=== PATIENT | male | born 1955 | race African-American/Black ===

== ENCOUNTER 2017-06-08 17:12 | Emergency (ER) | payer OTHER ==
[~2017-06-08] VITALS: Wt 80.2 kg
[2017-06-08 18:15] LABS: HEMATOCRIT 33.3 % (42.0-52.0); HEMOGLOBIN 10.8 gm/dL (14.0-18.0); MCH 26.5 pg (26.0-34.0); MCHC 32.4 g/dL (28.0-37.0); MCV 81.7 fL (80.0-100.0); PLATELET COUNT 327 thou/uL (150-400); RBC 4.08 mil/uL (4.50-6.00); RDW 15.4 % (10.5-14.5); WBC 10.7 thou/uL (4.0-11.0)
[2017-06-08 18:24] LABS: CALCIUM 10.8 mg/dL (8.5-10.1); CREATININE 0.9 mg/dL (0.7-1.3); POTASSIUM 3.4 mmol/L (3.5-5.1)
[2017-06-08 18:36] LABS: ABSOLUTE NEUTROPHILS 7.1 thou/uL (1.4-8.2)
[2017-06-08 21:55] VITALS: BP 154/55
[2017-06-08] MEDS ORDERED: CARVEDILOL3.125 MG PER TUBE (22:08)
[2017-06-08] MEDS ORDERED: MAXIPIME 1 GM/D51 G1 IV (22:09)
[2017-06-08] MEDS ORDERED: ACIDOPHILUS1 EAC3 PER TUBE (22:10)
[2017-06-08] MEDS ORDERED: CYCLOBENZAPRINE5 MG PO (22:10)
[2017-06-08] MEDS ORDERED: TRANSDERM-SCOP1 EACH TOP (22:10)
[2017-06-08] MEDS ORDERED: DURAGESIC25 MCG/HR TRANSDERM (22:11)
[2017-06-08] MEDS ORDERED: FLUOROMETHOLONE5 ML OPHTHALMIC (22:12)
[2017-06-08] MEDS ORDERED: GABAPENTIN 100100 MG PER TUBE (22:12)
[2017-06-08] MEDS ORDERED: GLUCAGEN1 M2 (22:12)
[2017-06-08] MEDS ORDERED: HUMALOG100 UNIT/1 SUBQ (22:13)
[2017-06-08] MEDS ORDERED: GLUTOSE GEL 1515 G1 PO (22:13)
[2017-06-08] MEDS ORDERED: HEPARIN 5 U1 UNIT/ML SUBQ (22:14)
[2017-06-08] MEDS ORDERED: HYDRALAZIN20 MG/1 ML IV (22:14)
[2017-06-08] MEDS ORDERED: LANTUS100 UNIT/M SUBQ (22:15)
[2017-06-08] MEDS ORDERED: VIMPAT100 MG PER TUBE (22:15)
[2017-06-08] MEDS ORDERED: KEPPRA750 MG PER TUBE (22:16)
[2017-06-08] MEDS ORDERED: MELATONIN3 MG PER TUBE (22:16)
[2017-06-08] MEDS ORDERED: OXYCODONE HCL 55 MG PO (22:17)
[2017-06-08] MEDS ORDERED: MESALAMINE PO (22:17)
[2017-06-08] MEDS ORDERED: PRO-STAT LIQUID30 M1 PO (22:18)
[2017-06-08] MEDS ORDERED: VITAMIN D3400 UNIT PER TUBE (22:20)
[2017-06-08] MEDS ORDERED: SEROQUEL 25 MG25 M1 PER TUBE (22:20)
[2017-06-08] MEDS ORDERED: VALIUM5 MG PER TUBE (22:21)
[2017-06-08] MEDS ORDERED: PEPCID20 MG PO (22:21)
[2017-06-08] MEDS ORDERED: BENADRYL25 MG PER TUBE (22:21)
== END 2017-06-08 22:05 ==
LOC: ER 17:12
PROVIDERS: Emergency Medicine
DX: J95.09 Other tracheostomy complication (principal); J96.90 Respiratory failure, unspecified, unspecified whether with hypoxia or hypercapnia; J18.9 Pneumonia, unspecified organism; Z99.11 Dependence on respirator [ventilator] status; G93.1 Anoxic brain damage, not elsewhere classified; Y83.8 Other surgical procedures as the cause of abnormal reaction of the patient, or of later complication, without mention of misadventure at the time of the procedure; Y92.89 Other specified places as the place of occurrence of the external cause

== ENCOUNTER 2017-06-08 22:42 | Inpatient (IN) | payer OTHER ==
[~2017-06-08] VITALS: Wt 74.6 kg
--- NOTE | ~2017-06-08 | EEG ---
[facility] [place] [address] ELECTROENCEPHALOGRAM Name: MEJIAALEXANDRIAJEANNINE Room #: 245-P [facility] IN M.R.#: [id number] Admission: 06/11/17 Attend Phys: Froy Melendez MD Discharge: 06/18/17 Date of : 53 Report #: [id number] THIS REPORT FOR: //name// CC: MALI Zapata [facility] DATE OF SERVICE: 06/16/2017 This patient is being evaluated for altered mental status. EEG was done by placing the electrodes by standard 10-20 system of electrode placement. Both referential and sequential montages were used for recording. Background activity in this patient's EEG is about 5-6 Hz and 25 microvolts. Photic stimulation was unremarkable. EEG continued to be poorly formed, but throughout the record, no active epileptiform activity was noticed. IMPRESSION: This patient's EEG does not demonstrate any clear-cut epileptiform activity. It is abnormal because it is slow and poorly formed. That is a nonspecific abnormality, which can occur with encephalopathy, effect of psychotropic medication, dementia, etc. Clinical correlation is recommended. <ELECTRONICALLY SIGNED> By: Madhav Kvein MD 06/19/17 2152 [id number] 1058 Madhav Kevin MD /nt
--- NOTE | ~2017-06-08 | P ---
[facility] [address] PROCEDURE REPORT Name: JEANNINE WILCOX Room #: 245-P [facility] IN M.R.#: [id number] Admission: 06/11/17 Attend Phys: Froy Melendez MD Discharge: 06/18/17 Date of : 53 Report #: [id number] THIS REPORT FOR: //name// CC: Vladislav Arias MD DATE OF SERVICE: 06/16/2017 PROCEDURE PERFORMED: Removal of percutaneous gastric tube replacement with a PEG J-tube. DESCRIPTION OF PROCEDURE: The risks and benefits of the procedure were explained to the patient's family, those risks including but not limited to bleeding, perforation, the risk of sedation. They understood these risks and gave informed consent. The procedure was performed in the ICU room unit. The patient is already sedated with Precedex. Again, he has a long-term tracheostomy in place. A 1 mg of Versed was also given today. The patient already on max dose of Precedex. Next, using a standard Fujinon upper endoscope, the scope was placed in the patient's mouth and advanced under direct vision through the esophagus, stomach and into the second portion of the duodenum. The esophagus was normal throughout. The GE junction was normal. Overall, the gastric mucosa was normal. The PEG tube was noted to be in place in the mid body of the stomach. The pylorus was normal and patent. The duodenal bulb, first and second portion were all normal. The scope was then brought back up into the patient's stomach and the PEG tube was removed with simple traction out the fistula. Next, using a blue guidewire, this was inserted through the fistula and grasped with a snare through the endoscope. The scope was then brought back up with the wire through the patient's mouth. Next, a 24-[employer] PEG tube was secured to the blue guidewire and using a pull technique was put into position without difficulty. The PEG tube was then secured to the anterior abdominal wall. Next, the scope was reintroduced into the patient's mouth and into the stomach. PEG tube bumper was noted to be in good position in the mid body again. At this point, a guidewire was advanced through the PEG tube. This was grasped with a biopsy forcep and brought down into the duodenum with the endoscope. Next, the J-tube portion was then guided over the guidewire without difficulty into the duodenum. The wire was removed. There was no coiling of the J portion in the stomach. It went into the pylorus quite easily and is in good position at this time. At this point, the scope was then withdrawn and the procedure terminated. The patient tolerated the procedure well. [address] [address] PROCEDURE REPORT Name: JEANNINE WILCOX Room #: 245-P [facility] IN M.R.#: [id number] Admission: 06/11/17 Attend Phys: Froy Melendez MD Discharge: 06/18/17 Date of : 53 Report #: [id number] IMPRESSION: Removal of previous gastric tube replaced with a PEG J-extension tube as described above. J is in proper position in the duodenum, okay to start using tube at this time. Thank you for allowing me to participate in his care. <ELECTRONICALLY SIGNED> By: Singh Holman MD 06/20/17 1043 1252 1457 Singh Holman MD /nt
--- NOTE | ~2017-06-08 | EKG ---
[address] [address] ELECTROCARDIOGRAM REPORT Name: JEANNINE WILCOX Room #: 245- ADM IN M.R.#: [id number] Admission: 06/11/17 Attend Phys: Froy Melendez MD Discharge: Date of : 53 Report #: [id number] THIS REPORT FOR: //name// [facility] Test Date: 2017-06-15 Test Time: 15:54:34 Pat Name: JEANNINE WILCOX Department: Room: [facility] Gender: M Health Information Managers: FREDERIC : 1955 Requested By: Froy Melendez Order Number: [id number] MD: Kirk Mckeon Measurements Intervals [place] Rate: 58 P: 83 [place]: 147 QRS: 6 QRSD: 75 T: 49 QT: 439 QTc: 432 Interpretive Statements Sinus rhythm Probable anteroseptal infarct, recent No previous ECG available for comparison Electronically Signed On 06-15-2017 22:25:00 CDT by Kirk Mckeon [email or web address] <ELECTRONICALLY SIGNED> By: Kirk Mckeon MD 06/15/17 2225 1554 1554 MD BRAYDEN Hunter
--- NOTE | ~2017-06-08 | HC ---
[facility] [place] [address] CONSULTATION Name: JEANNINE WILCOX Room #: 245-P [facility] IN M.R.#: [id number] Admission: 06/11/17 Attend Phys: Froy Melendez MD Discharge: Date of : 53 Report #: [id number] THIS REPORT FOR: //name// CC: Froy Zapata Jace Akkulugari DATE OF SERVICE: 06/12/2017 HISTORY OF PRESENT ILLNESS: This is a 62-year-old male patient who is unable to provide any history at all. This patient is comatose and now he is sedated because he was pretty restless. No history is available, but it looks like this patient had a cardiac arrest and I do not have any records available for review on that. The patient apparently also had seizures at that time and it was a few months ago. That is all the history I can get by talking to the nurses. I do not know whether any testing was done and when was the last testing done in this patient. From the record, it looks like that this patient was on seizure medication at one time and presently also this patient is on Vimpat and Keppra. How much seizure he had at that time is not clear. REVIEW OF SYSTEMS: A 14-point review of system was attempted from the record. 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 He was [facility] to the [facility] facility, but with some difficulty with ventilation. He was transferred back here. Does not look like he is having any active seizure. That is all the 14-point review of system I can get. PAST MEDICAL HISTORY: Appeared to be positive for cardiac arrest. FAMILY HISTORY: Unavailable. SOCIAL HISTORY: Not available. PHYSICAL EXAMINATION: The patient was seen, he was pretty sedated and it was not possible to do any good neurological examination, it was attempted. He is unresponsive to the painful or verbal stimuli. I cannot tell if he moves anything. His cranial nerve examination 2-12 was attempted and it was not possible to do that. His reflexes could not be elicited. He does not appear to have any meningeal sign, is moderately built individual who does not appear to have any dysmorphic features of eyes, ears and face. His blood pressure is 140/93, respiration is 23, pulse is 80. LABORATORY DATA: Indicate a white count of 9.1. At one time, his potassium was 2.7. No neurological imaging studies available in this patient. IMPRESSION: This patient was discussed with Dr. Arias. I suggested a [facility] [address] [place] [address] CONSULTATION Name: JEANNINE WILCOX Room #: [facility] IN M.R.#: [id number] Admission: 06/11/17 Attend Phys: Froy Melendez MD Discharge: Date of : 53 Report #: [id number] psychiatric consult to control his agitation. Because of history of seizure, I will get an EEG done in this patient. I will continue both medications for the time being for his seizures. I do not know when was the last time a CT scan of the head was done in this patient, but I will try to get it done sometime tomorrow to make sure no other pathology has appeared since then. Thank you very much for allowing me to share in the management of this patient and we will see if we can get hold of some family and get some more history. <ELECTRONICALLY SIGNED> By: Madhav Kevin MD 06/15/17 0956 [id number] Madhav Kevin MD /nt
--- NOTE | ~2017-06-08 | HC ---
[facility] [place] [address] CONSULTATION Name: JEANNINE WILCOX Room #: [facility] M.R.#: [id number] Admission: 06/08/17 Attend Phys: Carolyn Lujan Discharge: Date of : 53 Report #: [id number] THIS REPORT FOR: //name// CC: Carolyn Lujan Shane Zapata Jace Akkulugari DATE OF SERVICE: 06/09/2017 ATTENDING PHYSICIAN: Dr. Lujan. REASON FOR EVALUATION: Possible infectious complications. HISTORY OF PRESENT ILLNESS: Chart reviewed, the patient examined. This is a 62-year-old gentleman with a history of cardiac arrest. This was complicated by successful resuscitation; however, experienced anoxic brain injury with profound encephalopathy and required prolonged mechanical ventilatory support via tracheostomy. He was weaned from that apparently and was transferred from an acute long-term care facility due to disruption of his trachea, required correcting it. The record is not available. Apparently, he was on antibiotics including cefepime and appears to be on vancomycin as well. It is not clear what was being treated, although he does have chronic respiratory failure and patchy bilateral pulmonary opacities. He is unable to give me any history. He is quite restless at this point. There has been no recorded temperature elevations. He is not on pressor support. ALLERGIES: None known. MEDICATIONS: Melatonin, enoxaparin, Levetiracetam, chlorhexidine, famotidine, carvedilol, quetiapine, insulin, propofol, diazepam, lacosamide. PAST MEDICAL HISTORY: As noted above, history of seizures. SOCIAL HISTORY: Unknown. FAMILY HISTORY: Noncontributory. REVIEW OF SYSTEMS: Not obtainable. PHYSICAL EXAMINATION: GENERAL: He is quite restless. He is in supine position, intensive care unit. He has a tracheostomy in place, on mechanical ventilatory support. VITAL SIGNS: Temperature 98.2, pulse 101, respirations 24, blood pressure 180/79. SKIN: Warm, dry, no rashes. HEENT: As noted above. [facility] [address] [place] [address] CONSULTATION Name: JEANNINE WILCOX Room #: [address] [place] [address] M.R.#: [id number] Admission: 06/08/17 Attend Phys: Carolyn Lujan Discharge: Date of : 53 Report #: [id number] LUNGS: Scattered coarse breath sounds. HEART: Borderline tachycardic. I do not appreciate a murmur. ABDOMEN: Soft. There is really no evidence of any peritoneal signs. GENITOURINARY AND RECTAL: Deferred. LABORATORY DATA: Most recent ABG: pH 7.436, pCO2 of 47.6, pO2 of 115.2, was on 30%, ____ CPAP. Electrolytes: Sodium 146, potassium 3.1, chloride 106, bicarb is 32, anion gap of 8, BUN and creatinine 14 and 0.9, glucose of 128. LFTs unremarkable. Albumin of 3.4, total protein 7.0. Estimated GFR 103. CBC: White count 13.2, H and H 10.1 and 31.1, platelets of 331. IMAGING: Chest x-ray: Cardiomegaly, mild vascular congestion, patchy bilateral pulmonary opacities. ASSESSMENT: Chronic respiratory failure complicated by pneumonitis. It difficult to ascertain clinically or radiographically whether this is treated. It is not overtly unstable at this point. I think it is reasonable to hold antibiotics. Sputum is pending. We will check urinalysis as well as ____ temperature elevation or some indication of pyogenic infection would hesitate to restart the antibiotics. Based on the notation in the brief records available, the cefepime was supposed to be discontinued on about June 12 and it is still uncertain whether he is on vancomycin prior to that as well. <ELECTRONICALLY SIGNED> By: Mateo Martines MD 06/10/17 1343 1548 0402 Mateo Martines MD /nt
--- NOTE | ~2017-06-08 | EEG ---
[facility] [place] [address] ELECTROENCEPHALOGRAM Name: JEANNINE WILCOX Room #: 245-P ADM IN M.R.#: [id number] Admission: 06/11/17 Attend Phys: Froy Melendez MD Discharge: Date of : 53 Report #: [id number] THIS REPORT FOR: //name// CC: Froy Melendez Shane [facility] Akkulugari DATE OF SERVICE: 06/13/2017 This patient is being evaluated for altered mental status. This patient is completely uncooperative. Lot of motion artifact is present. Only small amount of EEG is interpretable. That portion of the EEG appeared to be demonstrating a background activity of 5-6 Hz and 30 microvolt. It is intermixed with theta range slowing. The exact frequency is difficult to tell because the patient has motion artifact which will interfere with evaluation of the background activity. IMPRESSION: Most of this EEG is uninterpretable because the patient is unable to cooperate. Small portion of EEG, which is interpretable demonstrate finding which can be consistent with encephalopathy, although it is nonspecific. <ELECTRONICALLY SIGNED> By: Madhav Kevin MD 06/15/17 0957 192 32 Madhav Kevin MD /nt
--- NOTE | ~2017-06-08 | HC ---
[facility] [place] [address] CONSULTATION Name: JEANNINE WILCOX Room #: 245-P [facility] IN ..#: [id number] Admission: 06/11/17 Attend Phys: Froy Melendez MD Discharge: 06/18/17 Date of : 53 Report #: [id number] THIS REPORT FOR: //name// CC: SANTHOSH Flores DATE OF SERVICE: 06/16/2017 HISTORY OF PRESENT ILLNESS: The patient is a 62-year-old male with a past history of anoxic brain injury requiring long-term tracheostomy and PEG tube use. Reason for GI consultation is concern for aspiration. Therefore, a PEG-J was attempted to be placed through Interventional Radiology yesterday, but they were unsuccessful. Apparently, the patient had an episode where his trach became dislodged at his Usp. The patient is nonresponsive in general. PAST MEDICAL HISTORY: History of cardiac arrest, anoxic brain injury requiring long-term tracheostomy and PEG tube for nutritional support, history of seizure disorder. ALLERGIES: No known drug allergies. SOCIAL HISTORY: Unknown. REVIEW OF SYSTEMS: Unobtainable due to mental status. FAMILY HISTORY: Unknown. CURRENT MEDICATIONS: Valproic acid, ceftazidime, bisacodyl, docusate, lorazepam, magnesium sulfate, potassium chloride, fentanyl transderm patch, oxycodone p.r.n., scopolamine patch, hydralazine, albuterol, Atrovent, melatonin, Lovenox, Pepcid, carvedilol, insulin sliding scale. He is on Precedex drip at this time for agitation, diazepam p.r.n., Zofran p.r.n., MiraLax. PHYSICAL EXAMINATION: VITAL SIGNS: Temperature is 98.4, pulse 54, blood pressure 128/65, respiratory rate is 19. GENERAL: He is nonresponsive. HEENT: Sclerae are nonicteric. Oropharynx clear. Poor dentition. NECK: Tracheostomy tube is in place. He is not on a ventilator. [facility] [address] [place] [address] CONSULTATION Name: BRENDENJEANNINE Chapin Room #: 245-P [facility] IN [facility].#: [id number] Admission: 06/11/17 Attend Phys: Froy Melendez MD Discharge: 06/18/17 Date of : 53 Report #: [id number] CARDIOVASCULAR: Regular rate. CHEST: With decreased breath sounds bilaterally. ABDOMEN: Soft. He is nondistended. PEG is noted to be in place. EXTREMITIES: Significant contractures of his upper and lower extremities bilaterally. LABORATORY DATA: Sodium 142, potassium 3.7, chloride 107, bicarbonate 31, BUN 13, creatinine 0.9, AST 10, total bilirubin 0.4, magnesium 1.6, alkaline phosphatase 69, ALT is 15, total protein 6.8, albumin 3.3. Ammonia level 16. WBC is 15.8, hemoglobin 10.4, platelet count is 314. ASSESSMENT AND PLAN: Possible aspiration pneumonia despite the patient having gastric tube attempted, replacement with gastric J-tube was unsuccessful in IR. We will plan on attempting to place endoscopically today. Thank you for allowing me to participate in his care. <ELECTRONICALLY SIGNED> By: Singh Holman MD 06/20/17 1043 1248 1509 Singh Holman MD /nt
[~2017-06-08 22:42] MED LIST: ACIDOPHILUS1 EAC3 PER TUBE; BENADRYL25 MG PER TUBE; CARVEDILOL3.125 MG PER TUBE; CYCLOBENZAPRINE5 MG PO; DURAGESIC25 MCG/HR TRANSDERM; FLUOROMETHOLONE5 ML OPHTHALMIC; GABAPENTIN 100100 MG PER TUBE; GLUCAGEN1 M2; GLUTOSE GEL 1515 G1 PO; HEPARIN 5 U1 UNIT/ML SUBQ; HUMALOG100 UNIT/1 SUBQ; HYDRALAZIN20 MG/1 ML IV; KEPPRA750 MG PER TUBE; LANTUS100 UNIT/M SUBQ; MAXIPIME 1 GM/D51 G1 IV; MELATONIN3 MG PER TUBE; MESALAMINE PO; OXYCODONE HCL 55 MG PO; PEPCID20 MG PO; PRO-STAT LIQUID30 M1 PO; SEROQUEL 25 MG25 M1 PER TUBE; TRANSDERM-SCOP1 EACH TOP; VALIUM5 MG PER TUBE; VIMPAT100 MG PER TUBE; VITAMIN D3400 UNIT PER TUBE
[2017-06-08 23:12] VITALS: BP 145/88
[2017-06-08 23:33] LABS: BE(vivo) 6.5 mmol/L (-2 to +3); HCO3 31.2 mmol/L (22.0-26.0); PCO2 45.2 mmHg (35.0-45.0); PO2 76.8 mmHg (80.0-100.0); pH 7.457 (7.360-7.450); sO2 95.9 % (92.0-98.0)
[2017-06-09] VITALS (51 sets, daily range): BP systolic 87–184; BP diastolic 57–152
[2017-06-09 09:59] LABS: HEMATOCRIT 31.1 % (42.0-52.0); HEMOGLOBIN 10.1 gm/dL (14.0-18.0); MCH 26.4 pg (26.0-34.0); MCHC 32.4 g/dL (28.0-37.0); MCV 81.6 fL (80.0-100.0); RBC 3.81 mil/uL (4.50-6.00); RDW 15.1 % (10.5-14.5); WBC 13.2 thou/uL (4.0-11.0)
[2017-06-09 10:23] LABS: ALBUMIN 3.4 g/dL (3.4-5.0); CALCIUM 10.5 mg/dL (8.5-10.1); CREATININE 0.9 mg/dL (0.7-1.3); POTASSIUM 3.1 mmol/L (3.5-5.1); TOTAL BILIRUBIN 0.3 mg/dL (<0.1-1.0)
[2017-06-09 12:23] LABS: BE(vivo) 6.2 mmol/L (-2 to +3); HCO3 31.3 mmol/L (22.0-26.0); PCO2 47.6 mmHg (35.0-45.0); PO2 115.2 mmHg (80.0-100.0); pH 7.436 (7.360-7.450); sO2 98.3 % (92.0-98.0)
[2017-06-09 19:54] LABS: URINE BILIRUBIN NEGATIVE (Negative); URINE BLOOD 2+ (Negative); URINE CLARITY SL CLOUDY; URINE COLOR YELLOW; URINE GLUCOSE-RANDOM* NEGATIVE (Negative); URINE KETONES NEGATIVE (Negative); URINE PROTEIN (DIPSTICK) NEGATIVE (Negative); URINE UROBILINOGEN 0.2 E.U./dl (0.2-1.0)
[2017-06-09 19:55] LABS: URINE LEUKOCYTES-REFLEX 2+ (Negative); URINE NITRITE-REFLEX POSITIVE (Negative)
[2017-06-09 20:08] LABS: URINE WBC-REFLEX 6-15 Few /HPF (0-5)
[2017-06-09 20:10] LABS: CASTS None Seen /LPF (None Seen); SQUAMOUS 0-3 Few /LPF (0-3)
[2017-06-10] VITALS (30 sets, daily range): BP systolic 122–186; BP diastolic 67–143
[2017-06-10 15:57] LABS: BE(vivo) 3.3 mmol/L (-2 to +3); HCO3 27.9 mmol/L (22.0-26.0); PCO2 42.5 mmHg (35.0-45.0); pH 7.435 (7.360-7.450); sO2 97.9 % (92.0-98.0)
[2017-06-11] VITALS (40 sets, daily range): BP systolic 112–193; BP diastolic 55–105
[2017-06-11 13:36] LABS: HEMOGLOBIN 10.3 gm/dL (14.0-18.0); MCH 26.1 pg (26.0-34.0); MCHC 32.1 g/dL (28.0-37.0); MCV 81.3 fL (80.0-100.0); PLATELET COUNT 340 thou/uL (150-400); RBC 3.94 mil/uL (4.50-6.00); RDW 15.2 % (10.5-14.5); WBC 11.5 thou/uL (4.0-11.0)
[2017-06-11 14:01] LABS: ABSOLUTE NEUTROPHILS 7.4 thou/uL (1.4-8.2)
[2017-06-11 14:02] LABS: ANISOCYTOSIS 1+
[2017-06-12] VITALS (27 sets, daily range): BP systolic 107–184; BP diastolic 62–96
[2017-06-12 07:45] LABS: ALBUMIN 3.3 g/dL (3.4-5.0); CALCIUM 9.9 mg/dL (8.5-10.1); CREATININE 0.7 mg/dL (0.7-1.3); DIRECT BILIRUBIN 0.1 mg/dL (<0.1-0.3); POTASSIUM 3.3 mmol/L (3.5-5.1); TOTAL BILIRUBIN 0.3 mg/dL (<0.1-1.0); TOTAL PROTEIN 6.5 g/dL (6.4-8.2)
[2017-06-12 08:13] LABS: TSH 2.746 uIU/mL (0.358-3.740)
[2017-06-12 09:34] LABS: HEMATOCRIT 32.7 % (42.0-52.0); HEMOGLOBIN 10.7 gm/dL (14.0-18.0); MCH 26.7 pg (26.0-34.0); MCHC 32.7 g/dL (28.0-37.0); MCV 81.5 fL (80.0-100.0); PLATELET COUNT 341 thou/uL (150-400); RBC 4.02 mil/uL (4.50-6.00); RDW 15.8 % (10.5-14.5); WBC 9.1 thou/uL (4.0-11.0)
[2017-06-12 10:27] LABS: ABSOLUTE NEUTROPHILS 5.8 thou/uL (1.4-8.2); ANISOCYTOSIS 1+
[2017-06-13] VITALS (26 sets, daily range): BP systolic 100–196; BP diastolic 58–118
[2017-06-13 06:12] LABS: ABSOLUTE NEUTROPHILS 5.9 thou/uL (1.4-8.2); BASOPHILS 0.9 % (0.0-2.0); EOSINOPHILS 5.7 % (0.0-3.0); HEMATOCRIT 30.9 % (42.0-52.0); HEMOGLOBIN 10.1 gm/dL (14.0-18.0); LYMPHOCYTES 17.2 % (24.0-44.0); MCH 26.7 pg (26.0-34.0); MCHC 32.6 g/dL (28.0-37.0); MONOCYTES 11.9 % (1.0-8.0); PLATELET COUNT 324 thou/uL (150-400); POLYS 64.3 % (36.0-66.0); RBC 3.77 mil/uL (4.50-6.00); RDW 15.4 % (10.5-14.5); WBC 9.1 thou/uL (4.0-11.0)
[2017-06-13 06:17] LABS: CALCIUM 9.1 mg/dL (8.5-10.1); CREATININE 0.7 mg/dL (0.7-1.3)
[2017-06-13 06:21] LABS: POTASSIUM 2.8 mmol/L (3.5-5.1)
[2017-06-14] VITALS (25 sets, daily range): BP systolic 133–191; BP diastolic 57–147
[2017-06-14 05:43] LABS: ABSOLUTE NEUTROPHILS 5.8 thou/uL (1.4-8.2); BASOPHILS 0.2 % (0.0-2.0); EOSINOPHILS 5.5 % (0.0-3.0); HEMATOCRIT 32.3 % (42.0-52.0); HEMOGLOBIN 10.5 gm/dL (14.0-18.0); LYMPHOCYTES 29.1 % (24.0-44.0); MCH 26.6 pg (26.0-34.0); MCHC 32.5 g/dL (28.0-37.0); MCV 81.7 fL (80.0-100.0); MONOCYTES 9.7 % (1.0-8.0); PLATELET COUNT 357 thou/uL (150-400); POLYS 55.5 % (36.0-66.0); RBC 3.96 mil/uL (4.50-6.00); RDW 15.4 % (10.5-14.5); WBC 10.5 thou/uL (4.0-11.0)
[2017-06-14 05:56] LABS: ALBUMIN 3.3 g/dL (3.4-5.0); CALCIUM 9.9 mg/dL (8.5-10.1); CREATININE 0.8 mg/dL (0.7-1.3); MAGNESIUM 1.3 mg/dL (1.8-2.4); POTASSIUM 3.5 mmol/L (3.5-5.1); TOTAL BILIRUBIN 0.4 mg/dL (<0.1-1.0); TOTAL PROTEIN 6.8 g/dL (6.4-8.2)
[2017-06-15] VITALS (26 sets, daily range): BP systolic 111–206; BP diastolic 62–118
[2017-06-15 04:34] LABS: CALCIUM 9.7 mg/dL (8.5-10.1); CREATININE 0.8 mg/dL (0.7-1.3); MAGNESIUM 1.6 mg/dL (1.8-2.4); POTASSIUM 3.4 mmol/L (3.5-5.1)
[2017-06-15 10:00] LABS: POTASSIUM 3.1 mmol/L (3.5-5.1)
[2017-06-16] VITALS (51 sets, daily range): BP systolic 85–190; BP diastolic 47–100
[2017-06-16 05:54] LABS: HEMATOCRIT 31.9 % (42.0-52.0); HEMOGLOBIN 10.4 gm/dL (14.0-18.0); MCH 26.4 pg (26.0-34.0); MCHC 32.6 g/dL (28.0-37.0); MCV 81.1 fL (80.0-100.0); RBC 3.93 mil/uL (4.50-6.00); RDW 15.9 % (10.5-14.5); WBC 15.8 thou/uL (4.0-11.0)
[2017-06-16 06:01] LABS: CALCIUM 9.6 mg/dL (8.5-10.1); CREATININE 0.9 mg/dL (0.7-1.3); MAGNESIUM 1.6 mg/dL (1.8-2.4); POTASSIUM 3.7 mmol/L (3.5-5.1)
[2017-06-17] VITALS (25 sets, daily range): BP systolic 103–163; BP diastolic 69–116
[2017-06-17 04:09] LABS: HEMATOCRIT 31.5 % (42.0-52.0); HEMOGLOBIN 10.4 gm/dL (14.0-18.0); MCH 26.6 pg (26.0-34.0); MCV 80.7 fL (80.0-100.0); RBC 3.9 mil/uL (4.50-6.00); RDW 15.7 % (10.5-14.5); WBC 10.7 thou/uL (4.0-11.0)
[2017-06-17 04:18] LABS: CALCIUM 9.6 mg/dL (8.5-10.1); CREATININE 0.8 mg/dL (0.7-1.3); MAGNESIUM 1.5 mg/dL (1.8-2.4); POTASSIUM 3.8 mmol/L (3.5-5.1)
[2017-06-17 11:24] LABS: CHOLESTEROL 182 mg/dL (<200); HDL CHOLESTEROL 31 mg/dL (>40); LDL CHOLESTEROL 115 mg/dL (<100); TC:HDL 5.9 Ratio (Not establshd); TRIGLYCERIDE 184 mg/dL (<150); VLDL 37 mg/dL (<40)
[2017-06-17] MEDS ORDERED: DUONEB 2.5-0.5 M3 ML INH (14:29)
[2017-06-17] MEDS ORDERED: ENOXAPARIN40 MG/0.1 SUBQ (14:30)
[2017-06-17] MEDS ORDERED: DEPAKENE250 MG/5 M PER TUBE (14:32)
[2017-06-17] MEDS ORDERED: ZYPREXA 5 MG TAB5 M1 PO (14:33)
[2017-06-17] MEDS ORDERED: CEFTAZIDIME1 GM IV (14:55)
[2017-06-17] MEDS ORDERED: SEROQUEL 25 MG25 M1 PO (15:05)
[2017-06-18] VITALS (12 sets, daily range): BP systolic 96–168; BP diastolic 61–99
[2017-06-18 04:34] LABS: HEMATOCRIT 30.2 % (42.0-52.0); MCH 26.7 pg (26.0-34.0); MCV 80.8 fL (80.0-100.0); RBC 3.73 mil/uL (4.50-6.00); RDW 15.7 % (10.5-14.5); WBC 9.5 thou/uL (4.0-11.0)
[2017-06-18 04:42] LABS: CALCIUM 9.4 mg/dL (8.5-10.1); CREATININE 0.8 mg/dL (0.7-1.3); MAGNESIUM 1.5 mg/dL (1.8-2.4); POTASSIUM 3.8 mmol/L (3.5-5.1)
[2017-06-18] MEDS ORDERED: PRECEDEX IV (10:56)
== END 2017-06-18 11:40 | DRG 208 ==
LOC: ER 22:42 → ICU 23:14 → EROBS 23:14 → ICU 06-09 00:20
PROVIDERS: Emergency Medicine; Hospitalist; Internal Medicine; Internal Medicine Pulmonary Disease; Nurse Practitioner Acute Care; Nurse Practitioner Family; Psychiatry & Neurology Neuromuscular Medicine; Specialist
PROC: 5A1935Z Respiratory Ventilation, Less than 24 Consecutive Hours (ICD-10-PCS; principal; 2017-06-08)
PROC: 0D20XUZ Change Feeding Device in Upper Intestinal Tract, External Approach (ICD-10-PCS; 2017-06-16)
DX: J95.03 Malfunction of tracheostomy stoma (principal); J96.21 Acute and chronic respiratory failure with hypoxia; J69.0 Pneumonitis due to inhalation of food and vomit; J15.1 Pneumonia due to Pseudomonas; G93.1 Anoxic brain damage, not elsewhere classified; M48.02 Spinal stenosis, cervical region; Y83.8 Other surgical procedures as the cause of abnormal reaction of the patient, or of later complication, without mention of misadventure at the time of the procedure; K59.00 Constipation, unspecified; I10 Essential (primary) hypertension; G40.909 Epilepsy, unspecified, not intractable, without status epilepticus; Y92.89 Other specified places as the place of occurrence of the external cause; Z86.74 Personal history of sudden cardiac arrest; Z79.4 Long term (current) use of insulin; Z79.899 Other long term (current) drug therapy
CPT/HCPCS: 10078